=== PATIENT | male | born 1950 | race Caucasian/White ===

== ENCOUNTER 2021-02-13 15:21 | Emergency (ER) | payer MEDICARE, OTHER, SELFPAY ==
[2021-02-13 15:34] VITALS: BP 153/90; PULSE 71; RESP 18; TEMP 37.1; O2SAT 94; BMI 23.7
--- NOTE | 2021-02-13 15:48 | CT_ITS ---
WS: [id number] CT scan of the head, 02/13/2021 Clinical Data: fever, falling,. weakness Comparison: None. DLP: 926.[address] scans at [facility] use at least one of these dose optimization techniques: automat ed exposure control; mA and/or kV adjustment per patient size (includes targeted exams where dose is matched to clinical indication); or iterative reconstruction. Findings: The ventricular system is slightly enlarged without shift. No recent infarct or hemorrhage is seen. T here are no abnormal intracerebral masses. The cerebellum and brainstem are not remarkable. Bony windows of the skull and skull base show no fractures or erosions. The mastoid air cells, internal grinder al auditory canals, sella turcica, intraorbital contents, and paranasal sinuses are unremarkable. CT/CT head wo con* [id number] Impression: Moderate cerebral atrophy.
--- NOTE | 2021-02-13 15:48 | XR_ITS ---
WS: [id number] Portable AP upright chest, 02/13/2021 Clinical Data: fever, weakness Comparison: None. Findings: No nodules, masses or effusions are seen. The heart is normal. The pulmonary vascularity is not increased. No pneumonia or pneumothorax is seen. The aortic arch and descending aorta show minim al calcification and tortuosity XR/XR chest 1V portable [id number] Impression: Atherosclerosis.
--- NOTE | 2021-02-13 15:48 | ECG_ITS ---
[facility] Test Date: 2021-02-13 Pat Name: Elliot Russell Department: Room: Gender: Male Charity Fundraiser: : 1950 Requested By: Dominique Baptiste Order Number: [id number] Willams MD: Lucero Bauer M.D. Measurements Intervals [place] Rate: 73 P: 62 IL: 170 QRS: -76 QRSD: 108 T: 53 QT: 373 QTc: 412 Interpretive Statements SINUS RHYTHM PATTERN CONSISTENT WITH PULMONARY DISEASE LEFT ANTERIOR FASCICULAR BLOCK [QRS AXIS <= -45, QR IN I, RS IN II] No previous ECG available for comparison Electronically Signed On 02-13-2021 17:24:20 CDT by Lucero Bauer M.D. [id number]
--- NOTE | 2021-02-13 16:11 | ED_ITS ---
Documented by User: MARTHA Garcia 02/14/21 07:22 HPI - Fever General: Chief Complaint: Fever Stated Complaint: dizzy, weakness, no appetite Time Seen by Provider: 02/13/21 15:53 Source: patient Mode of arrival: ambulatory Limitations: no limitations History of Present Illness: HPI Narrative: 70-year-old male patient presents to the emergency department with 2-day history of high fever. Fever measured 106 per his significant other. He reports was recently treated with prescription of Bactrim for a left lower extremity leg wound that has been present for 1 year, he reports leg wound did not reveal erythema or drainage, he denied changes of the wound. He reports wound occurred when he banged his fernandes on the shredder of his tractor. He reports vomiting that occurred after taking Bactrim, Bactrim was discontinued with recommendation to take doxycycline per Dr. Giordano. Fever has continued, he has experienced episodes of falling, numerous times , at home. He denies injury or trauma upon exam, he denies neck pain or headache. His daughter has contacted his primary care provider, Dr. Giordano with noted delirium and confusion. He was last medicated with Tylenol at around 2 PM today due to fever measuring 101.0. He denies dysuria, abdominal pain. He reports nausea vomiting with last intake meal on Wednesday, 2 days ago. He denies chest pain, shortness of breath. He has completed Covid vaccines, second dose vaccine completed 3 weeks ago. elicited complaint: fever and weakness Onset (ago): day(s) (2) Measured temperature: 106.0 F Context: recent antibiotic use Relieving factors: acetaminophen Associated symptoms: Reports chills, confusion, nausea and vomiting; Deny abdominal pain or chest pain Treatments prior to arrival fever: acetaminophen Review of Systems General: Reports: 10 or more systems reviewed and unremarkable except in HPI and below Const: Reports: chills Eyes: Denies: change in vision, blurry vision, eye discomfort or eye redness ENMT: Denies: throat pain, dental pain or disequilibrium Card: Denies: chest pain, palpitations or irregular heart rhythm Resp: Denies: dyspnea, productive cough, non-productive cough, wheezing or chest congestion GI: Reports: nausea and vomiting; Denies: abdominal pain, hematemesis or constipation Musc: Reports: muscle weakness; Denies: neck pain, back pain, joint pain or joint stiffness Skin/Breast: Reports: rash and changes in skin color (due to chronic use of minocycline, forearms); Denies: pruritus Neuro: Reports: confusion Psych: Denies: anxiety, depression or change in appetite Beltran/Lymph: Reports: easy bruising; Denies: easy bleeding or tender lymph nodes Physical Exam Const: COMMON NORMALS: no acute distress, patient oriented x3, healthy appearing and alert GENERAL APPEARANCE: cooperative, comfortable, well kempt, well developed, frail appearing and well hydrated; not anxious and not ill appearing NUTRITIONAL APPEARANCE: thin ORIENTATION/CONSCIOUSNESS: Yes awake, Yes oriented to person, Yes oriented to place and Yes oriented to time HENMT: COMMON NORMALS: normocephalic, atraumatic, external ears normal, EAC's normal, Normal external nose present and moist oral mucous membranes HEAD & SCALP: normal to inspection, normocephalic and atraumatic FACE & SINUS: normal facial exam and sinuses nontender; face not symmetric NOSE: Normal external nose present EXTERNAL EAR: Yes external ears normal EXTERNAL AUDITORY CANAL: EAC's normal MOUTH: moist mucous membranes abnormal (dry) THROAT: posterior oropharynx normal Eye: COMMON NORMALS: Equal, round and reactive pupils present and EOMs intact bilaterally GENERAL EYE: appearance normal, both eyes and all related structures PUPIL: Yes Equal, round and reactive pupils present Neck/C-Spine: COMMON NORMALS: full ROM, no lymphadenopathy and supple GENE RAL: Yes normal visual inspection and Yes trachea midline CERVICAL SPINE: Yes cervical ROM normal, No pain with cervical ROM, No Cervical spine tenderness, No Paracervical muscle tenderness, No Paracervical spasm and No Trapezius muscle tenderness Lymph: LYMPHATIC: no lymphadenopathy noted and no lymphedema noted Chest: COMMONS NORMALS: normal inspection of the chest and normal palpation of entire chest wall CHEST: Yes Symmetrical chest wall rise Resp: COMMON NORMALS: normal respiratory effort, No retractions, No use of accessory muscles and clear to auscultation bilaterally EFFORT & INSPECTION: Yes able to speak in complete sentences AUSCULTATION: clear to auscultation bilaterally and diminished lung sounds bilateral in the lower lung taylor Cardio: COMMON NORMALS: regular rate, regular rhythm, S1 normal heart sound present, S2 normal heart sound present and Peripheral pulses 2+ throughout RATE: regular rate RHYTHM: regular rhythm HEART SOUNDS: S1 normal heart sound present and S2 normal heart sound present PERIPHERAL PULSES: Peripheral pulses 2+ throughout GI: COMMON NORMALS: Normal to inspection, nondistended, normoactive bowel sounds present, Soft to palpation and non-tender INSPECTION: Yes normal to inspection, No abdominal wall ecchymosis, No abdominal distension, No central obesity and No visible herniation PALPATION: Yes Soft to palpation : BLADDER/KIDNEY EXAM: Yes no CVA tenderness Back/Pelvis: COMMON NORMALS: no CVA tenderness, thoracic and lumbar spine normal to inspection, no thoracic nor lumbar tenderness and thoraco-lumbar ROM normal Extremity: COMMON NORMALS: normal to inspection, full ROM, capillary refill normal and no pedal edema GENERAL: Yes normal exam except as noted RIGHT LOWER EXTREMITY: Yes knee joint (erythema, skin abrasion, noted anterior, no effusion noted) Right knee: Yes palpation (non-tender) and Yes neurovascular exam (distally intact) EXTREMITY IMAGE (FRONT): 1. 1 cm x 1 cm raised lesion to the LLE, no drainage, erythema, scaling is present 2. skin tear with ecchymosis, superficial Neuro: COMMON NORMALS: patient oriented x3 and no focal motor deficits SENSORIUM/ORIENTATION: Yes alert, Yes oriented to person, Yes oriented to place and Yes oriented to time Psych: COMMON NORMALS: mental status grossly normal, Normal thought process present and cooperative APPEARANCE: Yes well kempt ACTIVITY/MOTOR BEHAVIOR : Yes appropriate eye contact THOUGHT PROCESS: Normal thought process present Skin: COMMON NORMALS: turgor normal GENERAL SKIN EXAM: turgor normal and dry skin RASHES: other (dark discoloration of the BUE, forearms) Course ED course: 70-year-old male patient presents to the emergency department with fever of unknown origin. He has experienced temperature reading 106.0 at home per significant other. Previously prescribed Bactrim for left lower extremity cellulitis from chronic wound, wound was not found to be erythematous with drainage or inflamed. Bactrim was changed to doxycycline as possible reaction to Bactrim as patient had exhibited vomiting and nausea with use of Bactrim. Chest x-ray negative for acute findings, CT of the head without acute findings - CT head completed due to frequent falls and weakness patient was experiencing with fever. He did not exhibit fever here in the ED, patient was medicated with Tylenol prior to arrival due to temperature reading of 101.0. was advised to come to the ED for Dr. Giordano who examined patient here in the ED -patient states was feeling better upon arrival to the ED. Is accompanied by his significant other. Serology work-up pending, transfer of care to Dr. Lerma due to end of shift. Vital signs are stable, he remains afebrile. Vital Signs: Vital signs: Vital Signs Temperature 98.8 F 02/13/21 15:34 Pulse Rate 86 02/13/21 19:01 Respiratory Rate 20 H 02/13/21 19:01 Blood Pressure 155/86 02/13/21 19:01 Pulse Oximetry 96 02/13/21 19:01 MDM - Fever Lab Data: Labs: Lab Results 02/13/21 02/13/21 02/13/21 Range/Units 16:41 16:41 16:41 WBC 12.0 H (4.0-10.0) 10^3/ uL RBC 5.33 H (4.1-5.3) 10^6/u L Hgb 16.1 (11.7-16.6) g/dL Hct 48.9 (42.0-52.0) % MCV 91.7 (80-94) fL MCH 30.2 (28.0-34.0) pg MCHC 32.9 (30.0-36.0) g/dL RDW 11.9 L (12.1-15.1) % Plt Count 199 (130-400) 10^3/c mm MPV 9.4 (7.4-10.4) fL Neut % (Auto) 83.3 % Lymph % (Auto) 7.6 % Alexander % (Auto) 8.5 % Eos % (Auto) 0.0 % Baso % (Auto) 0.3 % Neut # (Auto) 9.97 H (1.8-7.7) 10^3/u L Lymph # (Auto) 0.9 (0.8-4.8) 10^3/u L Alexander # (Auto) 1.0 H (0.2-0.9) 10^3/u L Eos # (Auto) 0.0 (0.0-0.8) 10^3/u L Baso # (Auto) 0.0 (0.0-0.1) 10^3/u L Nucleated RBC % (a uto) 0 % Nucleated RBCs # 0.0 /100WBC Sodium 130 L (136-145) mmol/L Potassium 3.7 (3.5-5.1) mmol/L Chloride 90 L (98-107) mmol/L Carbon Dioxide 25 (22-29) mmol/L Anion Gap 18.7 (5-19) BUN 24 H (8-23) mg/dL Creatinine 1.1 (0.7-1.2) mg/dL GFR Calculation Not Reportable Glucose 98 (65-115) mg/dL Calculated Osmolal ity 274 L (285-295) mOsm/k g Lactate 2.4 H (0.5-2.2) mmol/L Calcium 9.6 (8.5-10.5) mg/dL Total Bilirubin 1.1 (0.15-1.2) mg/dL AST 70 H (0-40) U/L ALT 35 (0-41) U/L Alkaline Phosphata se 87 (40-130) IU/L C-Reactive Protein 4.3 (0.0-4.9) mg/L Total Protein 8.2 (6.6-8.7) g/dL Albumin 4.7 (3.5-5.2) g/dL Globulin 3.5 (1.3-4.6) g/dL Lipase 22 (13-60) U/L Procalcitonin 0.64 H (0-0.5) ng/mL Urine Color (Yellow) Urine Appearance (CLEAR) Urine pH (5-7) Ur Specific Gravit y (1.005-1.030) Urine Protein (Negative) Urine Glucose (UA) (Normal) Urine Ketones (Negative) Urine Blood (Negative) Urine Nitrate (Negative) Urine Bilirubin (Negative) Urine Urobilinogen (Negative) mg/dL Ur Leukocyte Lauryn ase (Negative) 02/13/21 Range/Units 16:55 WBC (4.0-10.0) 10^3/ uL RBC (4.1-5.3) 10^6/u L Hgb (11.7-16.6) g/dL Hct (42.0-52.0) % MCV (80-94) fL MCH (28.0-34.0) pg MCHC (30.0-36.0) g/dL RDW (12.1-15.1) % Plt Count (130-400) 10^3/c mm MPV (7.4-10.4) fL Neut % (Auto) % Lymph % (Auto) % Alexander % (Auto) % Eos % (Auto) % Baso % (Auto) % Neut # (Auto) (1.8-7.7) 10^3/u L Lymph # (Auto) (0.8-4.8) 10^3/u L Alexander # (Auto) (0.2-0.9) 10^3/u L Eos # (Auto) (0.0-0.8) 10^3/u L Baso # (Auto) (0.0-0.1) 10^3/u L Nucleated RBC % (a uto) % Nucleated RBCs # /100WBC Sodium (136-145) mmol/L Potassium (3.5-5.1) mmol/L Chloride (98-107) mmol/L Carbon Dioxide (22-29) mmol/L Anion Gap (5-19) BUN (8-23) mg/dL Creatinine (0.7-1.2) mg/dL GFR Calculation Glucose (65-115) mg/dL Calculated Osmolal ity (285-295) mOsm/k g Lactate (0.5-2.2) mmol/L Calcium (8.5-10.5) mg/dL Total Bilirubin (0.15-1.2) mg/dL AST (0-40) U/L ALT (0-41) U/L Alkaline Phosphata se (40-130) IU/L C-Reactive Protein (0.0-4.9) mg/L Total Protein (6.6-8.7) g/dL Albumin (3.5-5.2) g/dL Globulin (1.3-4.6) g/dL Lipase (13-60) U/L Procalcitonin (0-0.5) ng/mL Urine Color Yellow (Yellow) Urine Appearance Clear (CLEAR) Urine pH 5 (5-7) Ur Specific Gravit y 1.010 (1.005-1.030) Urine Protein Neg (Negative) Urine Glucose (UA) Norm (Normal) Urine Ketones 1+ H (Negative) Urine Blood Neg (Negative) Urine Nitrate Negative (Negative) Urine Bilirubin Neg (Negative) Urine Urobilinogen Norm (Negative) mg/dL Ur Leukocyte Lauryn ase Negative (Negative) Imaging Data^: CXR: Radiologist's impression: [place] [address] XRay Report Signed Patient: Elliot Russell Unit #: [id number] : 1950 Age/Sex: 70 / F ADM Date: 02/13/21 Loc: ER Room/Bed: Attending Dr: Ordering Provider/Ordering MD: Dominique Zamarripa Date of Service: 02/13/21 Procedure(s): XR chest 1V portable [id number] Accession Number(s): [id number] Report Number: [id number] WS: [id number] Portable AP upright chest, 02/13/2021 Clinical Data: fever, weakness Comparison: None. Findings: No nodules, masses or effusions are seen. The heart is normal. The pulmonary vascularity is not increased. No pneumonia or pneumothorax is seen. The aortic arch and descending aorta show minimal calcification and tortuosity XR/XR chest 1V portable [id number] Impression: Atherosclerosis. Dictated By: Isabella Jones MD Signed By: Isabella Jones MD Signed Date/Time: 02/13/211621 DD/ 162 CT Head: Radiologist's impression: [address] [address] [address] Scan Report Signed Patient: Elliot Russell Unit #: [id number] : 1950 0[birth year] Age/Sex: 70 / M ADM Date: 02/13/21 Loc: ER Room/Bed: Attending Dr: Ordering Provider/Ordering MD: Dominique Zamarripa Date of Service: 02/13/21 Procedure(s): CT head wo con* [id number] Accession Number(s): [id number] Report Number: [id number] WS: [id number] CT scan of the head, 02/13/2021 Clinical Data: fever, falling,. weakness Comparison: None. DLP: 926.[address] scans at [facility] use at least one of these dose optimization techniques: automated exposure control; mA and/or kV adjustment per patient size (includes targeted exams where dose is matched to clinical indication); or iterative reconstruction. Findings: The ventricular system is slightly enlarged without shift. No recent infarct or hemorrhage is seen. There are no abnormal intracerebral masses. The cerebellum and brainstem are not remarkable. Bony windows of the skull and skull base show no fractures or erosions. The mastoid air cells, internal auditory canals, sella turcica, intraorbital contents, and paranasal sinuses are unremarkable. CT/CT head wo con* [id number] Impression: Moderate cerebral atrophy. Dictated By: Isabella Jones MD Signed By: Isabella Jones MD Signed Date/Time: 02/13/21 163 DD/ 1627 EKG Data^: EKG 1: EKG interpretation date: 02/13/21 EKG interpretation time: 16:40 Computer generated interpretation: sinus rhythm, left anterior fascicular block Discharge Plan Discharge Patient Disposition: Left Against Medical Advice Clinical Impression: Fever of unknown origin, General weakness Prescriptions: No Action doxycycline hyclate 100 mg capsule 100 mg PO BID Qty: 20 RF: 0 cyclobenzaprine 10 mg tablet 10 mg PO TID PRN (Reason: Muscle Pain) RF: 0 ibuprofen 800 mg tablet 800 mg PO TID PRN (Reason: Pain) RF: 0 metoprolol succinate 100 mg tablet extended release 24 hr 100 mg PO DAILY@2099 RF: 0 tamsulosin 0.4 mg capsule 0.4 mg PO BID@ RF: 0 Nitro-Bid 2 % ointment 1 ea transdermal BID RF: 0 montelukast 10 mg tablet 10 mg PO DAILY@08 RF: 0 finasteride 5 mg tablet 5 mg PO DAILY@08 RF: 0 levothyroxine 112 mcg tablet 112 mcg PO DAILY@08 RF: 0 acetaminophen 650 mg Tablet 1,300 mg PO ONCE PRN (Reason: Pain) RF: 0 aspirin 81 mg Tablet,Chewable 81 mg PO DAILY@08 RF: 0 Referrals: Gabby Roach APN [Primary Care Provider] - Coding Level of Care Code ED Lard Refiner for Chg Fwd Exam Comprehensive Documented by User: Jose Harrison MD 02/13/21 21:31 HPI - Fever General: Chief Complaint: Fever Stated Complaint: dizzy, weakness, no appetite Time Seen by Provider: 02/13/21 15:53 Physical Exam Extremity: EXTREMITY IMAGE (FRONT): 1. 1 cm x 1 cm raised lesion to the LLE, no drainage, erythema, scaling is present 2. skin tear with ecchymosis, superficial Course Vital Signs: Vital signs: Vital Signs Temperature 98.8 F 02/13/21 15:34 Pulse Rate 86 02/13/21 19:01 Respiratory Rate 20 H 02/13/21 19:01 Blood Pressure 155/86 02/13/21 19:01 Pulse Oximetry 96 02/13/21 19:01 MDM - Fever MDM Narrative: Medical decision making narrative: I took over care of this patient after the end of Mrs. Rebollar's shift. The patient's primary care doctor has also been in the room to see him Dr. Giordano. The cause of the patient's symptoms of multiple falls and unsteadiness on his feet are unclear though Dr. Giordano said he was too weak to even walk. Possible reaction to Bactrim antibiotic though unknown. He says on my exam that he feels significantly better and I gave him a liter of IV fluids which she says did improve him slightly and he felt like leaving. He had an elevated white count and slightly elevated lactic acid level. He requested to leave and I made him stand up to show him he was quite unsteady on his feet and likely would still fall again. He refused and asked to leave AGAINST MEDICAL ADVICE. I encouraged him to stay saying we do not know what is causing his condition and that it could worsen and he could potentially significantly hurt himself with a fall or even lead to his . He understands and says he will continue taking his doxycycline at home. He signed AMA and left and understands and accepts those consequences. I discussed with Dr. Giordano the patient's condition and that he left AMA over the phone. Lab Data: Labs: Lab Results 0402/[id number] 02/13/21 Range/Units 16:41 16:41 16:41 WBC 12.0 H (4.0-10.0) 10^3/ uL RBC 5.33 H (4.1-5.3) 10^6/u L Hgb 16.1 (11.7-16.6) g/dL Hct 48.9 (42.0-52.0) % MCV 91.7 (80-94) fL MCH 30.2 (28.0-34.0) pg MCHC 32.9 (30.0-36.0) g/dL RDW 11.9 L (12.1-15.1) % Plt Count 199 (130-400) 10^3/c mm MPV 9.4 (7.4-10.4) fL Neut % (Auto) 83.3 % Lymph % (Auto) 7.6 % Alexander % (Auto) 8.5 % Eos % (Auto) 0.0 % Baso % (Auto) 0.3 % Neut # (Auto) 9.97 H (1.8-7.7) 10^3/u L Lymph # (Auto) 0.9 (0.8-4.8) 10^3/u L Alexander # (Auto) 1.0 H (0.2-0.9) 10^3/u L Eos # (Auto) 0.0 (0.0-0.8) 10^3/u L Baso # (Auto) 0.0 (0.0-0.1) 10^3/u L Nucleated RBC % (a uto) 0 % Nucleated RBCs # 0.0 /100WBC Sodium 130 L (136-145) mmol/L Potassium 3.7 (3.5-5.1) mmol/L Chloride 90 L (98-107) mmol/L Carbon Dioxide 25 (22-29) mmol/L Anion Gap 18.7 (5-19) BUN 24 H (8-23) mg/dL Creatinine 1.1 (0.7-1.2) mg/dL GFR Calculation Not Reportable Glucose 98 (65-115) mg/dL Calculated Osmolal ity 274 L (285-295) mOsm/k g Lactate 2.4 H (0.5-2.2) mmol/L Calcium 9.6 (8.5-10.5) mg/dL Total Bilirubin 1.1 (0.15-1.2) mg/dL AST 70 H (0-40) U/L ALT 35 (0-41) U/L Alkaline Phosphata se 87 (40-130) IU/L C-Reactive Protein 4.3 (0.0-4.9) mg/L Total Protein 8.2 (6.6-8.7) g/dL Albumin 4.7 (3.5-5.2) g/dL Globulin 3.5 (1.3-4.6) g/dL Lipase 22 (13-60) U/L Procalcitonin 0.64 H (0-0.5) ng/mL Urine Color (Yellow) Urine Appearance (CLEAR) Urine pH (5-7) Ur Specific Gravit y (1.005-1.030) Urine Protein (Negative) Urine Glucose (UA) (Normal) Urine Ketones (Negative) Urine Blood (Negative) Urine Nitrate (Negative) Urine Bilirubin (Negative) Urine Urobilinogen (Negative) mg/dL Ur Leukocyte Lauryn ase (Negative) 02/13/21 Range/Units 16:55 WBC (4.0-10.0) 10^3/ uL RBC (4.1-5.3) 10^6/u L Hgb (11.7-16.6) g/dL Hct (42.0-52.0) % MCV (80-94) fL MCH (28.0-34.0) pg MCHC (30.0-36.0) g/dL RDW (12.1-15.1) % Plt Count (130-400) 10^3/c mm MPV (7.4-10.4) fL Neut % (Auto) % Lymph % (Auto) % Alexander % (Auto) % Eos % (Auto) % Baso % (Auto) % Neut # (Auto) (1.8-7.7) 10^3/u L Lymph # (Auto) (0.8-4.8) 10^3/u L Alexander # (Auto) (0.2-0.9) 10^3/u L Eos # (Auto) (0.0-0.8) 10^3/u L Baso # (Auto) (0.0-0.1) 10^3/u L Nucleated RBC % (a uto) % Nucleated RBCs # /100WBC Sodium (136-145) mmol/L Potassium (3.5-5.1) mmol/L Chloride (98-107) mmol/L Carbon Dioxide (22-29) mmol/L Anion Gap (5-19) BUN (8-23) mg/dL Creatinine (0.7-1.2) mg/dL GFR Calculation Glucose (65-115) mg/dL Calculated Osmolal ity (285-295) mOsm/k g Lactate (0.5-2.2) mmol/L Calcium (8.5-10.5) mg/dL Total Bilirubin (0.15-1.2) mg/dL AST (0-40) U/L ALT (0-41) U/L Alkaline Phosphata se (40-130) IU/L C-Reactive Protein (0.0-4.9) mg/L Total Protein (6.6-8.7) g/dL Albumin (3.5-5.2) g/dL Globulin (1.3-4.6) g/dL Lipase (13-60) U/L Procalcitonin (0-0.5) ng/mL Urine Color Yellow (Yellow) Urine Appearance Clear (CLEAR) Urine pH 5 (5-7) Ur Specific Gravit y 1.010 (1.005-1.030) Urine Protein Neg (Negative) Urine Glucose (UA) Norm (Normal) Urine Ketones 1+ H (Negative) Urine Blood Neg (Negative) Urine Nitrate Negative (Negative) Urine Bilirubin Neg (Negative) Urine Urobilinogen Norm (Negative) mg/dL Ur Leukocyte Lauryn ase Negative (Negative) Discharge Plan Discharge Patient Disposition: Left Against Medical Advice Clinical Impression: Fever of unknown origin, General weakness Prescriptions: No Action doxycycline hyclate 100 mg capsule 100 mg PO BID Qty: 20 RF: 0 cyclobenzaprine 10 mg tablet 10 mg PO TID PRN (Reason: Muscle Pain) RF: 0 ibuprofen 800 mg tablet 800 mg PO TID PRN (Reason: Pain) RF: 0 metoprolol succinate 100 mg tablet extended release 24 hr 100 mg PO DAILY@2100 RF: 0 tamsulosin 0.4 mg capsule 0.4 mg PO BID@08, RF: 0 Nitro-Bid 2 % ointment 1 ea transdermal BID RF: 0 montelukast 10 mg tablet 10 mg PO DAILY@08 RF: 0 finasteride 5 mg tablet 5 mg PO DAILY@08 RF: 0 levothyroxine 112 mcg tablet 112 mcg PO DAILY@08 RF: 0 acetaminophen 650 mg Tablet 1,300 mg PO ONCE PRN (Reason: Pain) RF: 0 aspirin 81 mg Tablet,Chewable 81 mg PO DAILY@08 RF: 0 Referrals: Doc,FRANK Pierre [Primary Care Provider] - Coding Level of Care Code ED Lard Refiner for Chg Fwd Exam Comprehensive
--- NOTE | 2021-02-13 16:34 | XRR_ITS ---
PROCEDURE INFORMATION: Exam: XR Left Knee Exam date and time: 02/13/2021 5:00 PM Age: 70 years old Clinical indication: Swelling, leg or foot; Additional info: Knee pain and redness TECHNIQUE: Imaging protocol: XR Left knee. Views: 3 views. Total images: 3 COMPARISON: No relevant prior studies available. FINDINGS: Bones/joints: No visible acute osseous abnormality, fracture, subluxation, or dislocation. No radiographically visible joint effusion. Osteopenia. Mild primary osteoarthritis. Mild chondrocalcinosis. Soft tissues: Soft tissues without evidence of edema, swelling, contusion, emphysema, or radiopaque foreign body. Vasculature: Arteriosclerosis XR/XR knee LT 3V* [id number] IMPRESSION: Nonacute.
--- NOTE | 2021-02-13 16:48 | PC.NURSE ---
EKG done at 1635 and shown to ER TEMPORARY HELP AGENCY REFERRAL CLERK.
[2021-02-13 17:04] LABS: Basophils % 0.3 %; Hematocrit 48.9 % (42.0-52.0); Hemoglobin 16.1 g/dL (11.7-16.6); Lymphocytes # 0.9 10^3/uL (0.8-4.8); Lymphocytes % 7.6 %; Mean Corpuscular HGB Conc 32.9 g/dL (30.0-36.0); Mean Corpuscular Hemoglobin 30.2 pg (28.0-34.0); Mean Corpuscular Volume 91.7 fL (80-94); Mean Platelet Volume 9.4 fL (7.4-10.4); Monocytes % 8.5 %; Neutrophils # 9.97 10^3/uL (1.8-7.7); Neutrophils % 83.3 %; Nucleated Red Blood Cells % 0 %; Platelet Count 199 10^3/cmm (130-400); Red Blood Count 5.33 10^6/uL (4.1-5.3); Red Cell Distribution Width 11.9 % (12.1-15.1)
[2021-02-13 17:06] LABS: Add Urine Microscopic? NO
[2021-02-13 17:11] LABS: Bilirubin Urine Neg (Negative); Blood Urine Neg (Negative); Glucose Urine UA Norm (Normal); Ketones Urine 1+ (Negative); Leukocyte Esterase Urine Negative (Negative); Nitrate Urine Negative (Negative); Protein Urine Neg (Negative); Urine Appearance Clear (CLEAR); Urine Color Yellow (Yellow); Urobilinogen Urine Norm (Negative); pH Urine 5 (5-7)
[2021-02-13] MEDS: lactated ringers 1,000 ML 999 ML IV (17:34)
[2021-02-13 17:40] LABS: Lactate (Lactic Acid level) 2.4 mmol/L (0.5-2.2)
[2021-02-13 17:52] LABS: Procalcitonin 0.64 ng/mL (0-0.5)
[2021-02-13 18:04] LABS: Alanine Aminotransferase 35 U/L (0-41); Albumin Level 4.7 g/dL (3.5-5.2); Alkaline Phosphatase 87 IU/L (40-130); Anion Gap 18.7 (5-19); Aspartate Amino Transferase 70 U/L (0-40); Blood Urea Nitrogen 24 mg/dL (8-23); C Reactive Protein 4.3 mg/L (0.0-4.9); Calcium 9.6 mg/dL (8.5-10.5); Carbon Dioxide 25 mmol/L (22-29); Chloride 90 mmol/L (98-107); Globulin 3.5 g/dL (1.3-4.6); Glucose 98 mg/dL (65-115); Lipase 22 U/L (13-60); Osmolality Calculated 274 mOsm/kg (285-295); Potassium 3.7 mmol/L (3.5-5.1); Sodium 130 mmol/L (136-145); Total Bilirubin 1.1 mg/dL (0.15-1.2); Total Protein 8.2 g/dL (6.6-8.7)
[2021-02-13 19:01] VITALS: BP 155/86; PULSE 86; RESP 20; O2SAT 96
== END 2021-02-13 19:41 | disposition left against medical advice (07) ==
PROVIDERS: Nurse Practitioner Family; Emergency Provider Family Medicine; PCP Nurse Practitioner Family
DX: R50.9 Fever, unspecified (principal); R53.1 Weakness; Z53.21 Procedure and treatment not carried out due to patient leaving prior to being seen by health care provider; Z79.82 Long term (current) use of aspirin
CPT/HCPCS: 70450; 71045; 73562; 80053; 81003; 83605; 83690; 84145; 85025; 86140; 87040; 93005; 96360; 99284

== ENCOUNTER → 2021-04-22 14:02 | Outpatient (BNVA) | payer MEDICARE, OTHER, SELFPAY | PROVIDERS: PCP Internal Medicine; Visit Provider Urology | DX: Z12.5 Encounter for screening for malignant neoplasm of prostate (principal); N40.1 Benign prostatic hyperplasia with lower urinary tract symptoms; N52.1 Erectile dysfunction due to diseases classified elsewhere; I10 Essential (primary) hypertension | CPT/HCPCS: 81003; G0103 ==

== ENCOUNTER 2021-10-01 13:39 | Outpatient (CLI) | payer MEDICARE, OTHER, SELFPAY ==
[2021-10-02 12:46] LABS: COMPLEMENT COMPONENT C3C 114 mg/dL (82-185); COMPLEMENT COMPONENT C4C 19 mg/dL (15-53)
[2021-10-03 14:22] LABS: CENTROMERE B ANTIBODY <1.0 NEG AI (<1.0 NEG); JO-1 ANTIBODY <1.0 NEG AI (<1.0 NEG); RNP ANTIBODY <1.0 NEG AI (<1.0 NEG); SCL-70 ANTIBODY <1.0 NEG AI (<1.0 NEG); SJOGREN'S ANTIBODY (SS-A) >8.0 POS AI (<1.0 NEG); SM ANTIBODY <1.0 NEG AI (<1.0 NEG); SS-B >8.0 POS AI (<1.0 NEG)
[2021-10-03 15:08] LABS: COMPLEMENT, TOTAL (CH50) >60 U/mL (31-60)
[2021-10-03 15:27] LABS: THYROID PEROXIDASE ANTIBODIES 2 IU/mL (<9)
[2021-10-06 15:43] LABS: ANA PATTERN Nuclear, Speckled; ANA SCREEN, IFA POSITIVE (NEGATIVE); ANA TITER > OR = 1:1280 titer
[2021-10-08 16:08] LABS: DNA AB (DS) CRITHIDIA,IFA NEGATIVE (NEGATIVE)
== END 2021-10-01 13:40 | disposition home or self-care (01) ==
LOC: LAB 13:43
PROVIDERS: PCP Internal Medicine; Visit Provider Dermatology
DX: L30.8 Other specified dermatitis (principal)
CPT/HCPCS: 86160; 86162; 86235; 86255; 86376

== ENCOUNTER → 2021-10-03 08:41 | Outpatient (BNVA) | payer MEDICARE, OTHER, SELFPAY | PROVIDERS: PCP Internal Medicine; Visit Provider Dermatology | DX: Z79.899 Other long term (current) drug therapy (principal); L30.8 Other specified dermatitis | CPT/HCPCS: 80053; 85025; 86160; 86162; 86235; 86255; 86376 ==

== ENCOUNTER → 2021-10-22 12:32 | Outpatient (BNVA) | payer MEDICARE, OTHER, SELFPAY | PROVIDERS: PCP Internal Medicine; Visit Provider Internal Medicine | DX: M35.00 Sjogren syndrome, unspecified (principal); Z11.59 Encounter for screening for other viral diseases; Z11.1 Encounter for screening for respiratory tuberculosis; D72.819 Decreased white blood cell count, unspecified; L30.9 Dermatitis, unspecified; Z87.891 Personal history of nicotine dependence | CPT/HCPCS: 80053; 81003; 84439; 84443; 85025; 85651; 86140; 86160; 86200; 86431; 86480; 86704; 86803; 87340; 99204; 99214 ==

== ENCOUNTER 2021-10-30 12:02 | Outpatient (CLI) | payer MEDICARE, OTHER, SELFPAY ==
--- NOTE | 2021-10-30 12:06 | XR_ITS ---
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 No pleural effusion or pneumothorax. Cardiac size: Normal. Mediastinum/Aorta: Mild atherosclerosis aorta. Bones: Mild spondylitic changes thoracic spine. XR/XR chest 2V* [id number] IMPRESSION: Mild atherosclerosis aorta. No acute cardiopulmonary disease.
== END 2021-10-30 12:03 | disposition home or self-care (01) ==
LOC: RAD 12:05
PROVIDERS: PCP Internal Medicine; Visit Provider Internal Medicine
DX: M35.00 Sjogren syndrome, unspecified; I70.0 Atherosclerosis of aorta; D72.819 Decreased white blood cell count, unspecified; R76.8 Other specified abnormal immunological findings in serum; R76.12 Nonspecific reaction to cell mediated immunity measurement of gamma interferon antigen response without active tuberculosis
CPT/HCPCS: 71046; 99213; 99214

== ENCOUNTER 2022-04-06 14:04 | Outpatient (CLI) | payer MEDICARE, OTHER, SELFPAY ==
[2022-04-06 15:04] LABS: Basophils % 0.8 %; Hematocrit 45.7 % (42.0-52.0); Hemoglobin 15.3 g/dL (11.7-16.6); Lymphocytes # 0.8 10^3/uL (0.8-4.8); Lymphocytes % 21.6 %; Mean Corpuscular HGB Conc 33.5 g/dL (30.0-36.0); Mean Corpuscular Volume 92.5 fl (80-94); Mean Platelet Volume 9.4 fL (7.4-10.4); Monocytes # 0.5 10^3/uL (0.2-0.9); Monocytes % 12.9 %; Neutrophils # 2.51 10^3/uL (1.8-7.7); Neutrophils % 64.4 %; Nucleated Red Blood Cells % 0 %; Platelet Count 186 10^3/cmm (130-400); Red Blood Count 4.94 10^6/uL (4.1-5.3); Red Cell Distribution Width 12.2 % (12.1-15.1); White Blood Count 3.9 10^3/uL (4.0-10.0)
[2022-04-06 15:09] LABS: Add Urine Microscopic? YES; Bilirubin Urine Neg (Negative); Blood Urine 2+ (Negative); Glucose Urine UA Norm (Normal); Ketones Urine Negative (Negative); Leukocyte Esterase Urine Negative (Negative); Nitrate Urine Negative (Negative); Protein Urine Trace (Negative); Urine Appearance Clear (CLEAR); Urine Color Yellow (Yellow); Urobilinogen Urine Norm (Negative); pH Urine 5 (5-7)
[2022-04-06 15:10] LABS: Add Urine Culture? No; Bacteria Urine TRACE /hpf; Mucus Urine 1+ /hpf; WBC Urine RARE /hpf (0-5)
[2022-04-06 15:18] LABS: Erythrocyte Sedimentation Rate 7 mm/hr (0-10)
[2022-04-06 15:32] LABS: Alanine Aminotransferase 21 U/L (0-41); Albumin Level 4.1 g/dL (3.5-5.2); Alkaline Phosphatase 70 IU/L (40-130); Anion Gap 13.3 (5-19); Aspartate Amino Transferase 30 U/L (0-40); Blood Urea Nitrogen 20 mg/dL (8-23); C Reactive Protein 10.3 mg/L (0.0-4.9); Calcium 9.2 mg/dL (8.5-10.5); Carbon Dioxide 27 mmol/L (22-29); Chloride 103 mmol/L (98-107); Globulin 3.2 g/dL (1.3-4.6); Glucose 116 mg/dL (65-115); Osmolality Calculated 292 mOsm/kg (285-295); Potassium 4.3 mmol/L (3.5-5.1); Sodium 139 mmol/L (136-145); Total Bilirubin 0.3 mg/dL (0.15-1.2); Total Protein 7.3 g/dL (6.6-8.7)
== END 2022-04-06 14:05 | disposition home or self-care (01) ==
LOC: LAB 14:12
PROVIDERS: PCP Internal Medicine; Visit Provider Internal Medicine
DX: M35.00 Sjogren syndrome, unspecified (principal); Z79.899 Other long term (current) drug therapy; R76.8 Other specified abnormal immunological findings in serum
CPT/HCPCS: 36415; 80053; 81001; 85025; 85651; 86140

== ENCOUNTER 2022-04-23 12:14 | Outpatient (CLI) | payer MEDICARE, OTHER, SELFPAY | END 2022-04-23 12:15 | disposition home or self-care (01) | PROVIDERS: PCP Internal Medicine; Visit Provider Urology | DX: Z12.5 Encounter for screening for malignant neoplasm of prostate (principal); N40.1 Benign prostatic hyperplasia with lower urinary tract symptoms; N52.1 Erectile dysfunction due to diseases classified elsewhere | CPT/HCPCS: 81003; 84153; 99213 ==

== ENCOUNTER → 2022-06-01 09:41 | Outpatient (BNVA) | payer MEDICARE, OTHER, SELFPAY | PROVIDERS: PCP Internal Medicine; Visit Provider Internal Medicine | DX: M35.00 Sjogren syndrome, unspecified (principal); D72.819 Decreased white blood cell count, unspecified; R76.8 Other specified abnormal immunological findings in serum; R76.12 Nonspecific reaction to cell mediated immunity measurement of gamma interferon antigen response without active tuberculosis | CPT/HCPCS: 99214 ==

== ENCOUNTER 2023-04-22 12:22 | Outpatient (CLI) | payer MEDICARE, OTHER, SELFPAY ==
[2023-04-22 13:32] LABS: PSA Screen - Urology 1.06 ng/mL (0-4)
== END 2023-04-22 12:23 | disposition home or self-care (01) ==
PROVIDERS: PCP Internal Medicine; Visit Provider Urology
DX: N40.1 Benign prostatic hyperplasia with lower urinary tract symptoms (principal); R97.20 Elevated prostate specific antigen [PSA]; N48.6 Induration penis plastica; N52.1 Erectile dysfunction due to diseases classified elsewhere; Z12.5 Encounter for screening for malignant neoplasm of prostate; Z79.899 Other long term (current) drug therapy
CPT/HCPCS: 36415; 51798; 99213; G0103

== ENCOUNTER → 2024-05-01 13:25 | Outpatient (BNVA) | payer MEDICARE, OTHER, SELFPAY | PROVIDERS: PCP Internal Medicine; Visit Provider Nurse Practitioner Family | DX: L30.9 Dermatitis, unspecified (principal); L57.0 Actinic keratosis; L81.8 Other specified disorders of pigmentation; D18.01 Hemangioma of skin and subcutaneous tissue; L82.1 Other seborrheic keratosis | CPT/HCPCS: 17000; 99204 ==

== ENCOUNTER → 2024-08-01 10:38 | Outpatient (BNVA) | payer MEDICARE, OTHER, SELFPAY | PROVIDERS: PCP Internal Medicine; Visit Provider Dermatology | DX: M35.1 Other overlap syndromes (principal); L81.8 Other specified disorders of pigmentation; M06.9 Rheumatoid arthritis, unspecified; M35.00 Sjogren syndrome, unspecified; L57.8 Other skin changes due to chronic exposure to nonionizing radiation | CPT/HCPCS: 99213 ==

== ENCOUNTER → 2025-01-30 13:55 | Outpatient (BNVA) | payer MEDICARE, OTHER, SELFPAY | PROVIDERS: PCP Internal Medicine; Visit Provider Dermatology | DX: M06.9 Rheumatoid arthritis, unspecified (principal); M35.00 Sjogren syndrome, unspecified; L57.8 Other skin changes due to chronic exposure to nonionizing radiation; L23.9 Allergic contact dermatitis, unspecified cause; D22.5 Melanocytic nevi of trunk; L21.8 Other seborrheic dermatitis; D48.5 Neoplasm of uncertain behavior of skin; L57.0 Actinic keratosis | CPT/HCPCS: 11102; 17000; 99214 ==

== ENCOUNTER → 2025-08-06 11:46 | Outpatient (BNVA) | payer MEDICARE, OTHER, SELFPAY | PROVIDERS: PCP Internal Medicine; Visit Provider Dermatology | DX: M06.9 Rheumatoid arthritis, unspecified (principal); M35.00 Sjogren syndrome, unspecified; L23.9 Allergic contact dermatitis, unspecified cause; L21.8 Other seborrheic dermatitis; L81.8 Other specified disorders of pigmentation; L82.0 Inflamed seborrheic keratosis; L29.89 Other pruritus; R20.8 Other disturbances of skin sensation; L57.0 Actinic keratosis | CPT/HCPCS: 17000; 17110; 99213 ==